=== PATIENT | male | born 1940 ===

== ENCOUNTER 2017-11-07 10:16 | Day surgery (SDC) | payer MEDICARE, MEDICAID ==
[2017-11-07] MEDS ORDERED: Lactated Ringer's 1,000 ML IV ONE (10:23)
[2017-11-07] MEDS ORDERED: Lidocaine 2% MPF (5 ml) Inj ONE (12:05)
[2017-11-07] MEDS ORDERED: Propofol 10 mg/ml Inj (20 ML) ONE (12:05)
[2017-11-07 12:34] VITALS: RESP 14
[2017-11-07 12:40] VITALS: BP 117/64; PULSE 78; TEMP 97.4; O2SAT 100
== END 2017-11-07 12:41 | disposition home or self-care (01) ==
LOC: H.ENDO 10:16
PROVIDERS: ATTEND Internal Medicine Gastroenterology
DX: R10.13 Epigastric pain (principal); K44.9 Diaphragmatic hernia without obstruction or gangrene; K31.9 Disease of stomach and duodenum, unspecified; R12 Heartburn; K29.50 Unspecified chronic gastritis without bleeding; E11.9 Type 2 diabetes mellitus without complications; E78.5 Hyperlipidemia, unspecified; I10 Essential (primary) hypertension
CPT/HCPCS: 43239; 82948; 88305; J2704; J7120

== ENCOUNTER 2017-11-21 07:55 | Day surgery (SDC) | payer MEDICARE, MEDICAID ==
[2017-11-21] MEDS ORDERED: Lactated Ringer's 1,000 ML IV ONE (08:41)
[2017-11-21] MEDS ORDERED: Propofol 10 mg/ml Inj (20 ML) ONE (11:19)
[2017-11-21] MEDS ORDERED: Lidocaine 2% MPF (5 ml) Inj ONE (11:20)
[2017-11-21 12:00] VITALS: BP 111/64; PULSE 68; RESP 16; TEMP 97.4; O2SAT 96
== END 2017-11-21 12:28 | disposition home or self-care (01) ==
LOC: H.ENDO 07:55
PROVIDERS: ATTEND Internal Medicine Gastroenterology
DX: Z86.010 Personal history of colon polyps (principal)
CPT/HCPCS: 82948; J2704; J7120